=== PATIENT | female | born 1990 | race Two or more races ===

== ENCOUNTER 2024-07-23 14:31 | Emergency (ER) | payer OTHER, SELFPAY ==
[2024-07-23] VITALS (19 sets, daily range): BP systolic 102–144; BP diastolic 63–98; PULSE 58–118; RESP 8–85; TEMP 36.7–36.9; O2SAT 98–100; BMI 28.3
--- NOTE | ~2024-07-23 | XR_ITS ---
CLINICAL HISTORY: post conscious sedation 2 view right knee Comparison: None Findings: No fractures or dislocations. No significant loss of joint space, osteophytes, or erosions. No joint effusion. No radiopaque foreign body. IMPRESSION: No acute fracture, dislocation or significant joint effusion. This document has been electronically signed by: Mirta Mendoza DO on 07/23/2024 16:20:45
--- NOTE | ~2024-07-23 | XR_ITS ---
CLINICAL HISTORY: dislocation 2 view right ankle Comparison: CR - XR ANKLE RT MIN 3V - 07/23/24 15:16 EST Findings: Interval placement of an overlying stabilizing cast. Mcguire type C fracture in the distal fibula with residual posterior and lateral displacement, 4 mm maximum step-off. Fracture in the superior aspect of the medial malleolus with satisfactory alignment. Now near normal tibiotalar articulation. Soft tissue swelling and an ankle effusion. No radiopaque foreign body. IMPRESSION: 1. Minimal residual displacement of the fracture in the distal fibula. 2. Satisfactory alignment of the fracture in the medial malleolus. 3. Satisfactory alignment of the ankle mortise. This document has been electronically signed by: Mirta Mendoza DO on 07/23/2024 16:15:54
--- NOTE | ~2024-07-23 | XR_ITS ---
CLINICAL HISTORY: RT ankle pain 2 view right ankle Comparison: None Findings: Displaced fracture in the distal fibula above the level of the syndesmosis. Limited evaluation of the medial malleolus. A fracture with no significant displacement is suspected. Disruption of the ankle mortise. Posterior dislocation of the talus relative to the tibia with likely a rotational component. Intact subtalar joint. No radiopaque foreign body. IMPRESSION: Positive for fracture-dislocation. This document has been electronically signed by: Mirta Mendoza DO on 07/23/2024 16:11:30
--- NOTE | 2024-07-23 14:55 | PC.NURSE ---
Addendum entered by Kelly Issa 07/23/24 18:44: This note was entered by MANI Cisneros due to her login not working for extended amount of time. Original Note: Ativan 2mg IV override in Pyxis and administered to pt. at this time by Maria Cisneros RN per verbal order of ARI Gaitan - awaiting order in AUG at this time. RN having IT issues and unable to log into computer at this time
[2024-07-23] MEDS: Morphine Sulfate 4 MG/ML CARTRIDGE IVPUSH (14:56)
[2024-07-23] MEDS: ondansetron HCL 4 MG/2 ML VIAL IVPUSH (14:57)
[2024-07-23] MEDS: HYDROmorphone HCl 1 MG/ML SYRINGE IVPUSH (15:17)
[2024-07-23] MEDS: LORazepam 2 MG/ML VIAL IVPUSH ×2 (15:21→16:39)
[2024-07-23] MEDS: propofoL 200 MG/20 ML VIAL 100 MG IVPUSH (15:33)
--- OUTSIDE RECORDS SUMMARY | 2024-07-23 15:37 | XMS_ITS | Encounter Summary ---
Author Organization [facility] Address Unknown Care Team Providers Care Fashion Intern Name Role Phone Radha Sylvester MD Primary Care Provider Reason for Visit * Reason Comments Follow-up Encounter Details Date Type Department Care Team (Late st Contact Info) Description 10/20/2021 Telephone [facility] Department of Internal Medicine [address] [place] [address], [address] [place] [address] Morena Rendon MA [address] [place] [address] Follow-up Social History Tobacco Use Types Packs/Day Years Used Date Smoking Tobacco: Never Smokeless Tobacco: Never Alcohol Use Standard Drinks/Week Comments No 0 (1 standard drink = 0.6 oz pur e alcohol) rarely if ever Comments No Sex and Gender Information Value Date Recorded Sex Assigned at Female 08/03/2019 7:39 AM EST Legal Sex Female 2:03 PM EDT Gender Identity Female 08/03/2019 7:39 AM EST Sexual Orientation Straight 08/03/2019 7: 39 AM EST documented as of this encounter Miscellaneous Notes * Telephone Encounter - Morena Rendon MA - 10/20/2021 12:02 PM EDT Pt notified and will have them done before her upcoming appt * Telephone Encounter - Morena Rendon MA - 10/20/2021 12:01 PM EDT Radha Sylvester MD sent to [facility] Please order bmp and iron/tibc/ferritin and notify patient that she is due for nonfasting labs. Diagnosis: iron deficiency. documented in this encounter Plan of Treatment Scheduled Orders Name Type Priority Associated Diagnoses Orde r Schedule Basic metabolic panel Lab - Test Panel Order Routine Iron deficiency Ordered: 10/20/2021 Iron, TIBC and ferritin panel ([facility]) Lab Routine Iron deficiency Ordered: 10/20/2021 documented as of this encounter Visit Diagnoses Diagnosis Iron deficiency- Primary Iron deficiency anemia, unspecified documented in this encounter Additional Health Concerns Infection Onset Date Last Indicated Resolved Time COVID-19 12/01/2023 12/01/2023 12/11/2023 7:18 PM EDT documented as of this encounter Care Teams Fashion Intern Relationship Specialty Start Date End Date Radha Sylvester MD [address] [place] [phone] PCP - General 09/06/23 documented as of this encounter
--- OUTSIDE RECORDS SUMMARY | 2024-07-23 15:37 | XMS_ITS | Encounter Summary ---
Author Organization [facility] Address Unknown Care Team Providers Care Flight Information Expediter Name Role Phone Radha Sylvester MD Primary Care Provider Reason for Visit * Reason Onset Date Comments Medication Refill 03/02/2024 Encounter Details Date Type Department Care Team ([facility] st Contact Info) Description 03/02/2024 Refill [facility] Department of Pharmacy [address] [place] [address] [phone] Radha Sylvester MD [address] [place] [phone] Medication Refill Social History Tobacco Use Types Packs/Day Years Used Date Smoking Tobacco: Never Smokeless Tobacco: Never Alcohol Use Standard Drinks/Week Comments No 0 (1 standard drink = 0.6 oz pur e alcohol) rarely if ever PHQ-2 Answer Date Recorded PHQ-2 Total Score 6 08/30/2023 Comments No Sex and Gender Information Value Date Recorded Sex Assigned at Female 08/03/2019 7:39 AM EST Legal Sex Female 2:03 PM EDT Gender Identity Female 08/03/2019 7:39 AM EST Sexual Orientation Straight 08/03/2019 7: 39 AM EST Occupation Industry Job Start Date Job End Date 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
--- OUTSIDE RECORDS SUMMARY | 2024-07-23 15:37 | XMS_ITS | Encounter Summary ---
Author Organization [facility] Address Unknown Care Team Providers Care Pulmonary Physical Therapist Name Role Phone Radha Sylvester MD Primary Care Provider Reason for Visit * Reason Onset Date Comments Medication Refill 11/08/2023 Encounter Details Date Type Department Care Team ([facility] st Contact Info) Description 11/08/2023 Refill [facility] Department of Internal Medicine [address] [place] [phone] Radha Sylvester MD [address] [place] [phone] Medication Refill Social History Tobacco Use Types Packs/Day Years Used Date Smoking Tobacco: Never Smokeless Tobacco: Never Alcohol Use Standard Drinks/Week Comments No 0 (1 standard drink = 0.6 oz pur e alcohol) rarely if ever PHQ-2 Answer Date Recorded PHQ-2 Total Score 6 08/30/2023 Comments Yes Sex and Gender Information Value Date Recorded Sex Assigned at Female 08/03/2019 7:39 AM EST Legal Sex Female 2:03 PM EDT Gender Identity Female 08/03/2019 7:39 AM EST Sexual Orientation Straight 08/03/2019 7: 39 AM EST Occupation Industry Job 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 Date Job End Date 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 on file Not on file documented as of this encounter Plan of Treatment Not on file documented as of this encounter Visit Diagnoses Not on filedocumented in this encounter Additional Health Concerns Infection Onset Date Last Indicated Resolved Time COVID-19 12/01/2023 12/01/2023 12/11/2023 7:18 PM EDT Assessment Noted Time PHQ-9 Depression Total Score: 19 024 5:01 PM EDT documented as of this encounter Care Teams Pulmonary Physical Therapist Relationship Specialty Start Date End Date Radha Sylvester MD [address] [place] [phone] PCP - General 09/06/23 documented as of this encounter
--- OUTSIDE RECORDS SUMMARY | 2024-07-23 15:37 | XMS_ITS | Encounter Summary ---
Author Organization [facility] Address Unknown Care Team Providers Care Lens Molder Name Role Phone Radha Sylvester MD Primary Care Provider Reason for Visit * Reason Onset Date Comments Medication Refill 11/25/2023 Encounter Details Date Type Department Care Team ([facility] st Contact Info) Description 11/25/2023 Refill [facility] Department of Pharmacy [address] [place] [address] [phone] Radha Sylvester MD [address] [place] [phone] Medication Refill Social History Tobacco Use [...] Industry Job Start Date Job End Date 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
--- OUTSIDE RECORDS SUMMARY | 2024-07-23 15:37 | XMS_ITS | Encounter Summary ---
Author Organization [facility] Address [address] [place] [address] Care Team Providers Care Senior Electrical Controls Engineer Name Role Phone Radha Sylvester MD Primary Care Provider Encounter Details Date Type Department Care Team ([facility] Contact Info) Description 11/11/2020 Transcribed Orders [facility] [address] [place] [phone] Radha Sylvester MD [address] [place] [phone] Social History Tobacco Use Types Packs/Day Years [...] AM EST documented as of this encounter Plan of Treatment Not on file documented as of this encounter Visit Diagnoses Not on filedocumented in this encounter Additional Health Concerns Infection Onset Date Last Indicated Resolved Time COVID-19 12/01/2023 12/01/2023 12/11/2023 7:18 PM EDT documented as of this encounter Care Teams Senior Electrical Controls Engineer Relationship Specialty Start Date End Date Radha Sylvester MD [address] [place] [phone] PCP - General 09/06/23 documented as of this encounter
--- OUTSIDE RECORDS SUMMARY | 2024-07-23 15:37 | XMS_ITS | Encounter Summary ---
Author Organization [facility] Address Unknown Care Team Providers Care Fisher Dip Net Name Role Phone Radha Sylvester MD Primary Care Provider Reason for Visit * Reason Comments Appointment Request MRI Encounter Details Date Type Department Care Team ([facility] Contact Info) Description 05/03/2023 Telephone [facility] DI [address] [place], [place] [phone] Radha Sylvester MD [address] [place] [phone] Appointment Request (MRI) Social History Tobacco Use Types Packs/Day Years Used Date Smoking Tobacco: Never Smokeless Tobacco: Never Alcohol Use Standard Drinks/Week Comments No 0 (1 standard drink = 0.6 oz pur e alcohol) rarely if ever Comments Unknown Sex and Gender Information Value Date Recorded Sex Assigned at Female 08/03/2019 7:39 AM EST Legal Sex Female 2:03 PM EDT Gender Identity Female 08/03/2019 7:39 AM EST Sexual Orientation Straight 08/03/2019 7: 39 AM EST documented as of this encounter Miscellaneous Notes * Telephone Encounter - Mirta Sanchez - 05/04/2023 2:03 PM EST Patient calling today to schedule. She states she has to schedule this appt within a certain time frame so she can have follow up appt with ortho. She states she keeps getting calls from ortho to follow up and see when appt scheduled. Requesting a call back to schedule. * Telephone Encounter - Christa Kerr - 05/03/2023 2:54 PM EST Pt is calling again about scheduling an appt. Contact # [phone] * Telephone Encounter - Silvia Herrera - 05/03/2023 10:02 AM EST Pt calling to schedule MRI foot- pt received referral on 04/30 Best contact # [phone] documented in this encounter Plan of Treatment Not on file documented as of this encounter Visit Diagnoses Not on filedocumented in this encounter Additional Health Concerns Infection Onset Date Last Indicated Resolved Time COVID-19 12/01/2023 12/01/2023 12/11/2023 7:18 PM EDT documented as of this encounter Care Teams Fisher Dip Net Relationship Specialty Start Date End Date Radha Sylvester MD [address] [place] [phone] PCP - General 09/06/23 documented as of this encounter
--- OUTSIDE RECORDS SUMMARY | 2024-07-23 15:37 | XMS_ITS | Encounter Summary ---
Author Organization [facility] Address Unknown Care Team Providers Care Rock Contractor Name Role Phone Radha Sylvester MD Primary Care Provider Reason for Visit * Reason Onset Date Comments FYI 08/31/2023 Encounter Details Date Type Department Care Team ([facility] st Contact Info) Description 08/31/2023 Telephone [facility] Department of Internal Medicine [address] [place] [address] [phone] Yarely Garcia, [employer] [address] [place] [phone] FYI Social History Tobacco Use Types Packs/Day Years [...] encounter Miscellaneous Notes * Telephone Encounter - DanielMirta - 08/31/2023 1:45 PM EDT Yarely Garcia Patient states she is calling to schedule 3 week follow up. Appt scheduled with pcp for 3 week follow on 4/8 @ 11am in person. While re confirming with pt on the phone, pt's phone went silent. Asked to call back to re confirm. documented in this encounter Plan of Treatment Not on file documented as of this encounter Visit Diagnoses Not on filedocumented in this encounter Additional Health Concerns Infection Onset Date Last Indicated Resolved Time COVID-19 12/01/2023 12/01/2023 12/11/2023 7:18 PM EDT Assessment Noted Time PHQ-9 Depression Total Score: 19 024 5:01 PM EDT documented as of this encounter Care Teams Rock Contractor Relationship Specialty Start Date End Date Radha Sylevster MD [address] [place] [phone] PCP - General 09/06/23 documented as of this encounter
--- OUTSIDE RECORDS SUMMARY | 2024-07-23 15:37 | XMS_ITS | Encounter Summary ---
Author Organization [facility] Address Unknown Care Team Providers Care Avian Keeper Name Role Phone Radha Sylvester MD Primary Care Provider Reason for Visit * Reason Onset Date Comments Medication Refill 11/24/2023 Encounter Details Date Type Department Care Team ([facility] st Contact Info) Description 11/24/2023 Refill [facility] Department of Internal Medicine [address] [place] [phone] Radha Sylvester MD [address] [place] [phone] Medication Refill Social History Tobacco Use [...] Industry Job Start Date Job End Date 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
--- OUTSIDE RECORDS SUMMARY | 2024-07-23 15:37 | XMS_ITS | Encounter Summary ---
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 on file Not on file documented as of this encounter Miscellaneous Notes * Telephone Encounter - Sergio Bejarano - 03/07/2024 1:53 PM EDT Pt called in requesting call back to schedule mri please contact [phone] documented in this encounter Plan of Treatment Not on file documented as of this encounter Visit Diagnoses Not on filedocumented in this encounter Additional Health Concerns Assessment Noted Time PHQ-9 Depression Total Score: 19 024 5:01 PM EDT documented as of this encounter Care Teams Search Developer Relationship Specialty Start Date End Date Radha Sylvester MD [address] [place] [phone] PCP - General 09/06/23 documented as of this encounter
--- OUTSIDE RECORDS SUMMARY | 2024-07-23 15:37 | XMS_ITS | Encounter Summary ---
Author Organization [facility] Address [address] [place] [phone] Care Team Providers Care Lens Edger Name Role Phone Radha Sylvester MD Primary Care Provider Encounter Details Date Type Department Care Team ([facility] st Contact Info) Description 11/23/2018 Scanned Document [facility] [address] [place] [address] Provider, Historical . Social History Tobacco Use Types Packs/Day Years [...] on file documented as of this encounter Procedures Procedure Name Priority Date/Time Associated Diagnosis Comments GENETICS SCAN Routine 11/23/2018 documented in this encounter Results * Genetics Scan (11/23/2018) us Historical Provider GENETIC TESTING Final Result documented in this encounter Visit Diagnoses Not on filedocumented in this encounter Additional Health Concerns Infection Onset Date Last Indicated Resolved Time COVID-19 12/01/2023 12/01/2023 12/11/2023 7:18 PM EDT documented as of this encounter Care Teams Lens Edger Relationship Specialty Start Date End Date Radha Sylvester MD [address] [place] [phone] PCP - General 09/06/23 documented as of this encounter
--- OUTSIDE RECORDS SUMMARY | 2024-07-23 15:37 | XMS_ITS | Encounter Summary ---
Author Organization [facility] Address Unknown Care Team Providers Care Care Program Director Name Role Phone Radha Sylvester MD Primary Care Provider Reason for Visit * Reason Comments Appointment Request US Encounter Details Date Type Department Care Team ([facility] Contact Info) Description 04/11/2021 Telephone [facility] DI [address] [place] [address] Radha Sylvester MD [address] [place] [phone] Appointment Request (US) Social History Tobacco Use Types Packs/Day Years [...] encounter Miscellaneous Notes * Telephone Encounter - Paty Metz - 04/14/2021 9:03 AM EDT APPT SCHED * Telephone Encounter - Xochilt Marx - 04/11/2021 3:44 PM EDT Pt returning missed call. * Telephone Encounter - Paty Metz - 04/11/2021 2:14 PM EDT LMOM * Telephone Encounter - Kelly Sims - 04/11/2021 12:24 PM EDT Radha Sylvester # [phone] Pt calling to schedule US. documented in this encounter Plan of Treatment Not on file documented as of this encounter Visit Diagnoses Not on filedocumented in this encounter Additional Health Concerns Infection Onset Date Last Indicated Resolved Time COVID-19 12/01/2023 12/01/2023 12/11/2023 7:18 PM EDT documented as of this encounter Care Teams Care Program Director Relationship Specialty Start Date End Date Radha Sylvester MD [address] [place] [phone] PCP - General 09/06/23 documented as of this encounter
--- OUTSIDE RECORDS SUMMARY | 2024-07-23 15:37 | XMS_ITS | Encounter Summary ---
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
--- OUTSIDE RECORDS SUMMARY | 2024-07-23 15:37 | XMS_ITS | Encounter Summary ---
Author Organization [facility] Address Unknown Care Team Providers Care Joy Loading Machine Operator Name Role Phone Radha Sylvester MD Primary Care Provider Encounter Details Date Type Department Care Team ([facility] Contact Info) Description 03/05/2017 Abstract Y Department of Obstetrics and Gynecology [address] [place] [phone] External, Provider Social History Tobacco Use Types Packs/Day Years Used Date Smoking Tobacco: Never Alcohol Use Standard Drinks/Week Comments Yes 0 (1 standard drink = 0.6 oz [...] documented as of this encounter Care Teams Joy Loading Machine Operator Relationship Specialty Start Date End Date Radha Sylvester MD [address] [place] [phone] PCP - General 09/06/23 documented as of this encounter
--- OUTSIDE RECORDS SUMMARY | 2024-07-23 15:37 | XMS_ITS | Clinical Summary ---
Author Organization [address] Address [address] [place] [phone] Care Team Providers Care Sharepoint Analyst Name Role Phone Radha Sylvester MD Primary Care Provider Allergies Active Allergy Reactions Criticality Noted Date Comments Gluten 12/29/2018 Celiac disease Medications dapsone (ACZONE) 5 % topical gelIndications: Acne vulgaris Apply topically 2 (two) times daily. Apply to affected area 60 g 6 2 Active valACYclovir (VALTREX) 1000 mg tabletIndicatio ns:HSV infection Take 2 tabs at earliest symptoms of cold sore such as tingling or burning and then take 2 tabs 12 hours later. 20 tablet 2 3 Active tretinoin (RETIN-A) 0.05 % creamIndication s:Acne vulgaris,Melasm a Apply topically nightly. Apply thin layer at night, 2-7 nights weekly, as tolerated 45 g 6 3 Active diphenhydrAMINE (BENADRYL) 25 mg capsule Take 1 capsule (25 mg total) by mouth every 6 (six) hours as needed for itching. Active clobetasoL (TEMOVATE) 0.05 % cream Apply topically 2 (two) times daily. 60 g 2 4 Active buPROPion SR (WELLBUTRIN SR) 100 mg 12 hr tablet Take 1 tablet (100 mg total) by mouth 2 (two) times daily. 180 tablet 1 4 Active escitalopram oxalate (LEXAPRO) 10 mg tablet Take 1.5 tablets (15 mg total) by mouth every morning. 135 tablet 1 4 11/22/19 25 Active Active Problems Problem Noted Date Diagnosed Date Anxiety with depression 11/08/2023 BMI 28.0-28.9,adult 03/13/2023 Rosacea 08/09/2019 Celiac disease 01/04/2019 Iron deficiency 01/04/2019 Overview (12/09/2021): As of 11/2021 -- slowing improving ferritin, not taking iron supplement. Advised MVI with iron. Family history of cancer 12/06/2018 Overview (12/06/2018): 11/2018 pt's genetic testing was negative Syncope, vasovagal 06/21/2007 Resolved Problems Problem Noted Date Diagnosed Date Resolved Date COVID-19 virus infection 03/13/202304/2024 Rh negative state in antepartum period 01/15/2022 11/24/2023 ETD (Eustachian tube dysfunction), right 08/18/2019 10/30/2021 Migraine 08/09/2019 08/30/2020 Malaise 01/04/2019 05/31/2019 Dysautonomia orthostatic hypotension syndrome 01/23/20 16 09/27/2023 Overview (03/06/2016): Followed by senior java [email or web address] developer in [facility] before moving to [place] in summer 2015. Dx age 18. Symptoms controlled by avoiding standing for long periods of time, eating well, avoiding alcohol, regular sleep. Pt seen by [facility] cardiology in 01/2016. Holter results (01/2016): SR, 1 PAC, no symptoms noted. Encounters Date Type Department Care Team Description 05/23/2024 Telephone [facility] Department of Internal Medicine [address] [place] [address] Radha Sylvester MD Medication Inquiry from Last 3 Months Immunizations Name Administration Dates Next Due COVID-19 Vaccine - PFIZER 05/26/2022,10/26/2020, 10/05/2020 COVID-19, Pfizer, 12yr + up, 30 mcg/0.3 mL 05/06/2023 Influenza, injectable, quadr ivalent, preservative free 04/02/2023,04/07/2022,04/25/2021,2018,04/01/2018,04/01/2017 Rho(D)-IG 01/15/2022 Tdap 04/01/2018 Family History Medical History Relation Name Comments Arrhythmia Father pt not sure of type of arrhythmia Heart disease Father no [place] Obesity Father Stroke Father related to adair harrison, per pt. Hypothyroidism Mother Breast cancer Other Great maternal aunt pre-men opausal Cancer Paternal Aunt 1 cervical ca Stroke Paternal Aunt 2 Cancer Paternal Grandmother uterus (pt not sure of age of diagnosis) Uterine cancer Paternal Grandmother Ovarian cancer Neg Hx Relation Name Status Comments Father Alive Mother Alive Other Great maternal aunt Paternal Aunt 1 Paternal Aunt 2 Paternal Grandmother Social History Tobacco Use Types Packs/Day Years Used Date Smoking Tobacco: Never Smokeless Tobacco: Never Tobacco Cessation:Counseling Given: Not Answered Alcohol Use Standard Drinks/Week Comments No 0 [...] Industry Job Start Date Job End Date 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 [employer] Not on file Not on file Not on file Last Filed Vital Signs Vital Sign Reading Time Taken Comments Blood Pressure 112/75 03/07/2024 9:59 AM EDT Pulse 71 03/07/2024 9:59 AM EDT Temperature 36.9 ??C (98.4 ??F) 01/15/2022 1:54 PM ED T Respiratory Rate 16 03/07/2024 9:59 AM EDT Oxygen Saturation 99% 03/07/2024 9:59 AM EDT Inhaled Oxygen Concentration - - Weight 66.2 kg (146 lb) 03/07/2024 9:59 AM EDT Height 160 cm (5' 3 ) 03/07/2024 9:59 AM EDT Body Mass Index 25.86 03/07/2024 9:59 AM EDT Plan of Treatment Health Maintenance Due Date Last Done Comments Influenza vaccine 01/20/2024 04/02/2023, , 04/25/2021, Additional history exists Covid-19 vaccine series ( season) 2024 05/06/2023, 05/26/2022, 06/06/2021, Additional history exists Tetanus adult (Td q 10,TDAP once) 04/01/2028 04/01/2018 Cervical cancer screening 08/24/20282023, 08/30/2020, 10/06/2017, Additional history exists RSV Discussion (1 - 1-dose 75+ series) 2066 HIV screening Completed 06/05/2019 Hepatitis C screening Completed 11/11/2020 Meningococcal Vaccine Aged Out No lex yarelis eligible based on patient's age to complete this topic Pneumococcal Vaccine Aged Out No long er eligible based on patient's age to complete this topic Procedures Procedure Name Priority Date/Time Associated Diagnosis Comments CYTOLOGY COORDINATOR OF ONLINE PROGRAMS CASES (YH) Routine 08/25/2023 5:22 PM EST HEPATITIS C AB WITH REFLEX TO HCV PCR Routine 11/11/2020 1:34 PM EDT HIV 1/2 AG/AB, W/REFLEXES (Q) Routine 06/05/2019 10:34 AM EST Screening for venereal disease from Last 3 Months or Most Recently Relevant to Health Maintenance Results * Cytology clamp jig assembler cases (YH) (08/25/2023 5:22 PM EST) Cytology Beating Machine Operator Cases ?CYTOLOGY REPORT ? Procedures/Addenda Attached Patient: BONNIE BASS ?MR #: [id number] ?Submitted by: JOY HAYES FINAL DIAGNOSIS SUREPATH PAP SMEAR: ? Primary Diagnosis: ? NEGATIVE FOR INTRAEPITHELIAL LESION OR MALIGNANCY. ? Additional Findings: ENDOCERVICAL/TRANS FORMATION ZONE COMPONENT PRESENT. ? ACUTE INFLAMMATION. Specimen Adequacy: THIS SPECIMEN IS SATISFACTORY FOR EVALUATION. NOTE: ??Cervical/vaginal cytology is a screening tool for cervical carcinoma and its precursor lesions with an inherent false negative rate. ??It is an inaccurate test for detection of endometrial lesions and should not be used to evaluate suspected endometrial abnormalities. ??(The [employer] System, 2001) ?? 08/26/2023 15:45 ?* Report Electronically Signed Out * ? This electronic signature indicates that the pathologist has personally reviewed the available gross and/or microscopic material and has based the diagnosis on that evaluation. ? Specimen(s) Received: SUREPATH PAP SMEAR Clinical History and Impression: {Not Available} Date of LMP: 08/01/23 ?? Procedures/Addenda MOLECULAR DX: HR HPV SCREENING ?Pathologist: ? [facility] ? Status: ??Signed Out ? Ordered: ? 08/25/2023 ?Reported: ? 08/26/2023 15:20 ? Interpretation Specimen: SUREPATH PAP SMEAR BELOW CUTOFF FOR HIGH RISK HPV HPV types 16, 18, 31, 33, 35, 39, 45, 51, 52, 56, 58, 59, 66, and 68 DNA were either considered NEGATIVE, undetectable, or below the pre-set threshold. This test was performed at [facility] Department of Pathology, [address] [place] [id number], CLIA# [id number] using the Roel sanchez 6800 HPV Test System and is only approved by the Food and Drug Administration (FDA) for use on cervical specimens collected in Cytyc Preservcyt Solution (ThinPrep). ??When using ThinPrep liquid based samples for non-cervical specimens, SurePath liquid based samples, or formalin fixed paraffin embedded tissue, the performance characteristics have been determined by [facility]. ??Although testing on samples that are not cervical in origin, and/or in any other medium besides ThinPrep, has not been cleared or approved by the FDA, the FDA has determined that such clearance or approval is not necessary. ? [facility] Cervical Tracking Result Non-Tracking [facility] High Risk HPV Screening Non-Tracking [facility] 08/25/2023 5:22 PM EST Comment:SUREPATH PAP SMEAR+ HPV Joy Malone FRONT END ALIGNMENT SPECIALIST PATHOLOGY/CYTOLOGY OR DERABLES Final Result Performing Organization Address City/State/[facility] Co de Phone Number [facility] Department of Pathology [address] [place] [phone] * Hepatitis C Ab with reflex to HCV PCR (11/11/2020 1:34 PM EDT) Hepatitis C Ab NON-REACT DERRICK NON-REACT DERRICK [facility] Signal To Cut-Off 0.02 <1.00 [facility] Comment: HCV antibody was non-reactive. There is no laboratory evidence of HCV infection. In most cases, no further action is required. However, if recent HCV exposure is suspected, a test for HCV RNA (test code 75311) is suggested. For additional information please refer to http://education.Discera/faq/WNC77l1 (This link is being provided for informational/ educational purposes only.) 11/11/2020 1:34 PM EDT 11/11/2020 1:34 PM EDT Narrative [facility] - 11/12/2020 6:37 PM EDT FASTING:NO FASTING: NO Resulting Agency Comment Performing Lab: ?Site ID: [id number] ?Name: [facility] ?Address: [address] [place] [address], [place] [address] ?Director: Jean Carlos Turcios M.D. Radha Sylvester MD LAB BLOOD ORDERABLES Fi nal Result Performing Organization Address [facility] Co de Phone Number [facility] [address] [place] [address] * HIV 1/2 ag/ab, w/reflexes (Q) (06/05/2019 10:34 AM EST) [facility] HIV Ag/Ab, 4th Generation NON-REACT DERRICK NON-REACT DERRICK [facility] Comment: HIV-1 antigen and HIV-1/HIV-2 antibodies were not detected. There is no laboratory evidence of HIV infection. PLEASE NOTE: This information has been disclosed to you from records whose confidentiality may be protected by state law. ??If your state requires such protection, then the state law prohibits you from making any further disclosure of the information without the specific written consent of the person to whom it pertains, or as otherwise permitted by law. A general authorization for the release of medical or other information is NOT sufficient for this purpose. ?? For additional information please refer to http://education.Discera/faq/WGA382 (This link is being provided for informational/ educational purposes only.) The performance of this assay has not been clinically validated in patients less than 2 years old. Blood 06/05/2019 10:3 4 AM EST 06/05/2019 10:35 AM EST Joy Malone APRN LAB BLOOD ORDERABLES Final Result Performing Organization Address [facility] Co de Phone Number [facility] [address] [place] [address] from Last 3 Months or Most Recently Relevant to Health Maintenance Insurance on file HEALTH on file HEALTH on file HEALTH on file [facility] on file [facility] on file Care Teams Sharepoint Analyst Relationship Specialty Start Date End Date Radha Sylvester MD [address] [place] [phone] PCP - General 09/06/23
--- OUTSIDE RECORDS SUMMARY | 2024-07-23 15:37 | XMS_ITS | Data Portability ---
Author Organization [place] - [facility], [facility] Address [address] [place] [address] Assessment Encounter Date Assessment Date Assessment LastModified by Organization Details LastModified Time 02/22/2015 02/22/2015 OCP= aware of risks/benefit s- Hx of syncope, got Gardasil - loloestrin # 3 months and f/u [email or web address] Not available 02/22/2015 12:06:19 05/07/2015 05/07/2015 happy with OCP, only silent periods, but pt wanted to keep going. Headaches at beginning now almost gone- may try nuvaring- 15 minutes visit [email or web address] Not available 05/07/2015 11:13:20 08/16/2015 08/16/2015 Normal Physician Underwriter Exam, discussed healthy diet, excercise and breast self exam. c/o discharge= affirm done, will continue OCP [email or web address] Not available 08/16/2015 10:51:29 Plan of Treatment Reminders Order Date Submit Date Provider Last Modified By Organization Details Last Modified Time Details Appointments None recorded. Lab test, urine 2014 015 [email or web address] In-Office Order, Internal Use Only DO Not Attach Compendium DO Not Attach Compendium, Do Not Delete/merge, [id number] 5 11:13:42 unlisted lab - chem scn pnl w/CBC, lipids, TSH, CRP, vit D 25-oh 2015 016 [facility] [address] [place], [id number] 6 10:55:24 glucose, QN [mass/volu me], serum or plasma 2015 016 [facility], [address] [place], [address] 6 17:39:06 urinalysis , dipstick 2015 016 [email or web address] In-Office Order, Internal Use Only DO Not Attach Compendium DO Not Attach Compendium, Do Not Delete/merge, [id number] 6 10:55:16 bacterial vaginosis + vaginitis panel, vaginal 2015 016 [facility], [address] [place], [address] 6 14:48:29 pap, LB + HPV 2015 016 [facility], [address] [place], [address] 6 10:55:04 Referral None recorded. Procedures None recorded. Surgeries None recorded. Imaging None recorded. Medication Orders None recorded. Patient TargetsNo targets recorded. Patient Instructions Encounter Date Encounter Id Patient Instructions Last Modified By Organization Details Last Modified Time 02/22/2015 [id number] OCP= aware of risks/benefits- Hx of syncope, got Gardasil - loloestrin # 3 months and f/u [email or web address] Not available 02/22/2015 12:06:19 OCP= aware of risks/benefits- Hx of syncope, got Gardasil - loloestrin # 3 months and f/u [email or web address] Not available 02/22/2015 12:06:19 05/07/2015 [id number] happy with OCP, only silent periods, but pt wanted to keep going. Headaches at beginning now almost gone- may try nuvaring- 15 minutes visit [email or web address] Not available 05/07/2015 11:13:21 happy with OCP, only silent periods, but pt wanted to keep going. Headaches at beginning now almost gone- may try nuvaring- 15 minutes visit [email or web address] Not available 05/07/2015 11:13:21 08/16/2015 [id number] vaginitis: care instructions [email or web address] Not available 08/19/2015 11:50:25 Reason for Referral None Reported. Results Created Date Observation Date Name Description Value Unit Range Abnormal Flag Note LastModifiedBy Organization Detail LastModifiedTime 08/16/19 16 08/16/2015 urina lysis , dipst ick Leukocytes Negati ve Not Available In-Office Order Internal Use Only DO Not Attach Compendium DO Not Attach Compendium, Do Not Delete/merge, [id number] 08/16/2015 10:23:48 08/16/19 16 08/16/2015 urina lysis , dipst ick Nitrite negati ve Not Available In-Office Order Internal Use Only DO Not Attach Compendium DO Not Attach Compendium, Do Not Delete/merge, [id number] 08/16/2015 10:23:48 08/16/19 16 08/16/2015 urina lysis , dipst ick Protein Negati ve Not Available In-Office Order Internal Use Only DO Not Attach Compendium DO Not Attach Compendium, Do Not Delete/merge, [id number] 08/16/2015 10:23:48 08/16/19 16 08/16/2015 urina lysis , dipst ick Glucose Negati ve Not Available In-Office Order Internal Use Only DO Not Attach Compendium DO Not Attach Compendium, Do Not Delete/merge, [id number] 08/16/2015 10:23:48 05/07/20 15 05/07/2015 pregn alber test, urine Result negati ve Not Available In-Office Order Internal Use Only DO Not Attach Compendium DO Not Attach Compendium, Do Not Delete/merge, [id number] 05/07/2015 10:38:51 08/16/19 16 08/21/2015 pap, LB + HPV report abnormal GYNEC OLOGI LEONIDES CYTOL OGY REPOR T THINP REP PAP TEST WITH HPV REFLE X AND GC/CH LAMYD IA SPECI MEN ADEQU ACY: SATIS FACTO RY FOR EVALU ATION ; ENDOC ERVIC AL/TR ANSFO RMATI ON ZONE COMPO NENT PRESE NT. INTER PRETA TION: NEGAT DERRICK FOR INTRA EPITH ELIAL KALIN Anthony OR YANIRA GONZÁLES . FUNGA L ORGAN ISMS MORPH OLOGI JAYA CONSI STENT WITH DAMON DA SPECI ES. 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 The Pap test is a scree geovanny test with an inher ent false negat derrick rate. Key lance noted , this case was scree mariaa at [facility] Part[facility] ers, [facility], [facility] ord, [address] [facility], [place] [address] CT Reg # [id number]. [phone] Not Available [facility] [address] [place] [address], [id number] 08/21/2015 10:55:04 08/16/19 16 08/17/2015 CT + NG DNA, PCR, unspe cifie d speci men source CERVIX /ENDOC ERVIX Not Available [facility] [address] [place] [address], [id number] 08/21/2015 10:55:05 08/16/19 16 08/17/2015 CT + NG DNA, PCR, unspe cifie d speci men chlamydia by DNA Negati ve negati ve Not Available [address], [id number] 08/21/2015 10:55:05 08/16/19 16 08/17/2015 CT + NG DNA, PCR, unspe cifie d speci men GC by DNA Negati ve negati ve Not FDA appro al for GC/Ch lamyd ia in SureP ath, recta l and throa t speci mens. Test valid ated by [facility] for detec ting GC/Ch lamyd ia from these [facility] es. Not Available [facility] [address] [place] [address], [id number] 08/21/2015 10:55:05 08/17/19 16 08/17/2015 gluco se, QN [mass /volu me], serum or plasm a glucose Duplic ate Test System Audit mg/dL Not Available [facility] [address] [place] [address], [id number] 08/17/2015 17:39:06 08/17/19 16 08/17/2015 gluco se, QN [mass /volu me], serum or plasm a glucose 99 mg/dL 65-99 Fasti ng: <100 mg/dL , Non-F astin g: <200 mg/dL (ADA 2004) Not Available [facility] [address] [place] [address], [id number] 08/17/2015 17:39:06 08/17/19 16 08/17/2015 CBC w/ auto diff white blood count 4.0 thou/ uL 4.0-11 .0 Not Available [facility] [address] [place] [address], [id number] 08/17/2015 17:39:07 08/17/19 16 08/17/2015 CBC w/ auto diff red blood count 4.67 mil/u L 4.00-5 .40 Not Available [facility] [address] [place] [address], [id number] 08/17/2015 17:39:07 08/17/19 16 08/17/2015 CBC w/ auto diff hemoglobin 14.2 g/dL 11.7-1 5.7 Not Available [facility] [address] [place] [address], [address] 08/17/2015 17:39:07 08/17/19 16 08/17/2015 CBC w/ auto diff hematocrit 43.0 % 35.0-4 7.0 Not Available [facility] [address] [place] [address], [id number] 08/17/2015 17:39:07 08/17/19 16 08/17/2015 CBC w/ auto diff MCV 92 fL 80-100 Not Available [facility] [address] [place] [address], [id number] 08/17/2015 17:39:07 08/17/19 16 08/17/2015 CBC w/ auto diff MCH 30.4 pg 26.0-3 4.0 Not Available [facility] [address] [place] [address], 08/17/2015 17:39:07 08/17/19 16 08/17/2015 CBC w/ auto diff MCHC 33.0 g/dL 30.0-3 6.0 Not Available [facility] [address], [place], 08/17/2015 17:39:07 08/17/19 16 08/17/2015 CBC w/ auto diff RDW 12.5 % 11.5-1 4.5 Not Available [facility] [address] [place] [address], [id number] 08/17/2015 17:39:07 08/17/19 16 08/17/2015 CBC w/ auto diff platelet count 232 thou/ uL 150-45 0 Not Available [facility] [address] [place] [address], [id number] 08/17/2015 17:39:07 08/17/19 16 08/17/2015 CBC w/ auto diff MPV 12.1 fL 9.4-12 .5 Not Available [facility] [address] [place] [address], [address] 08/17/2015 17:39:07 08/17/19 16 08/17/2015 CBC w/ auto diff neutrophil 49.6 % Not Available [facility] [address] [place] [address], [id number] 08/17/2015 17:39:07 08/17/19 16 08/17/2015 CBC w/ auto diff immature granulocyte 0.3 % Not Available [facility] [address] [place] [address], [address] 08/17/2015 17:39:07 08/17/19 16 08/17/2015 CBC w/ auto diff lymphocyte 41.3 % Not Available [facility] [address] [place] [address], [address] 08/17/2015 17:39:07 08/17/19 16 08/17/2015 CBC w/ auto diff monocyte 7.3 % Not Available [facility] [address] [place] [address], [address] 08/17/2015 17:39:07 08/17/19 16 08/17/2015 CBC w/ auto diff eosinophil 1.0 % Not Available [facility] [address] [place] [address], [id number] 08/17/2015 17:39:07 08/17/19 16 08/17/2015 CBC w/ auto diff basophil 0.5 % Not Available [facility] [address] [place] [address], 14[address] 08/17/2015 17:39:07 08/17/19 16 08/17/2015 CBC w/ auto diff neutrophil, absolute 1.97 thou/ uL 2.00-7 .50 low Not Available [facility] [address], [place], [facility] 08/17/2015 17:39:07 08/17/19 16 08/17/2015 CBC w/ auto diff immature granulocyte, absolute 0.01 thou/ uL 0.00-0 .10 Not Available [facility] [address] [place] [address], [facility] 08/17/2015 17:39:07 08/17/19 16 08/17/2015 CBC w/ auto diff lymphocyte, absolute 1.64 thou/ uL 1.50-4 .50 Not Available [facility] [address], [facility] 08/17/2015 17:39:07 08/17/19 16 08/17/2015 CBC w/ auto diff monocyte, absolute 0.29 thou/ uL 0.20-1 .50 Not Available [facility] [address] [place] [address], [facility] 08/17/2015 17:39:07 08/17/19 16 08/17/2015 CBC w/ auto diff eosinophil, absolute 0.04 thou/ uL 0.00-0 .70 Not Available [facility] [address], [facility] 08/17/2015 17:39:07 08/17/19 16 08/17/2015 CBC w/ auto diff basophil, absolute 0.02 thou/ uL 0.00-0 .20 Not Available [facility] [address], [facility] 08/17/2015 17:39:07 08/17/19 16 08/17/2015 bun (bloo d urea nitro gen), serum or plasm a blood urea nitrogen (BUN) 13 mg/dL 8-21 Not Available [facility] [address], [place], [facility] 08/17/2015 17:39:07 08/17/19 16 08/17/2015 creat inine w/ estim ated GFR (eGFR ), serum or plasm a creatinine 0.8 mg/dL 0.4-1. 1 Not Available [facility] [address], [facility] 08/17/2015 17:39:07 08/17/19 16 08/17/2015 creat inine w/ estim ated GFR (eGFR ), serum or plasm a eGFR 88 >59 MDRD in mL/mi n/1.7 3 sq meter s. For Afric an Ameri cans, multi ply by 1.21. Not Available [facility] [address] [place] [address], [facility] 08/17/2015 17:39:07 08/17/19 16 08/17/2015 BUN / creat inine ratio BUN / creatinine ratio 16 ratio 10.0-2 5.0 Not Available [facility] [address] [place] [address], [facility] 08/17/2015 17:39:08 08/17/19 16 08/17/2015 sodiu m, serum or plasm a sodium 142 mmol/ L 136-14 5 Not Available [facility] [address] [place] [address], [facility] 08/17/2015 17:39:08 08/17/19 16 08/17/2015 potas sium, serum potassium 4.9 mmol/ L 3.4-5. 3 Not Available [facility] [address] [place] [address], [facility] 08/17/2015 17:39:09 08/17/19 16 08/17/2015 chlor christiana, serum or plasm a chloride 105 mmol/ L 98-107 Not Available [facility] [address] [place] [address], [facility] 08/17/2015 17:39:09 08/17/19 16 08/17/2015 co2, (carb on dioxi de), total , serum or plasm a carbon dioxide 25 mmol/ L 22-33 Not Available [facility] [address] [place] [address], [facility] 08/17/2015 17:39:09 08/17/19 16 08/17/2015 bilir ubin, direc t, serum or plasm a bilirubin, direct <0.1 mg/dL 0.0-0. 2 Not Available [facility] [address] [place] [address], [facility] 08/17/2015 17:39:09 08/17/19 16 08/17/2015 bilir ubin, total , serum or plasm a bilirubin, total 0.4 mg/dL 0.2-1. 0 Not Available [facility] [address] [place] [address], [facility] 08/17/2015 17:39:10 08/17/19 16 08/17/2015 calci um, serum or plasm a calcium 9.1 mg/dL 8.7-10 .5 Not Available [address], [facility] 08/17/2015 17:39:10 08/17/19 16 08/17/2015 phosp horus , serum or plasm a phosphorus 3.6 mg/dL 2.7-4. 5 Not Available [address], [facility] 08/17/2015 17:39:10 08/17/19 16 08/17/2015 uric acid, serum or plasm a uric acid 7.3 mg/dL 2.5-7. 0 high Not Available [address], [facility] 08/17/2015 17:39:11 08/17/19 16 08/17/2015 AST/S GOT (aspa rtate amino trans feras e), serum or plasm a aspartate aminotrans (AST) 30 U/L 10-50 Not Available [address], [facility] 08/17/2015 17:39:11 08/17/19 16 08/17/2015 ALT (josselyn ine amino trans feras e), serum or plasm a alanine aminotrans (ALT) 32 U/L 10-50 Not Available [address], [facility] 08/17/2015 17:39:11 08/17/19 16 08/17/2015 alkal ine phosp hatas e, serum or plasm a alkaline phosphatase 44 U/L 32-122 Not Available [facility] [address] [place] [address], [facility] 08/17/2015 17:39:11 08/17/19 16 08/17/2015 ldh, serum or plasm a lactate dehydrogenas e (LDH) 193 U/L 120-26 0 Not Available [address], [facility] 08/17/2015 17:39:12 08/17/19 16 08/17/2015 prote in, total , serum protein, total 7.2 g/dL 6.3-8. 3 Not Available [facility] [address], [facility] 08/17/2015 17:39:12 08/17/19 16 08/17/2015 album in, serum or plasm a albumin 4.5 g/dL 3.5-5. 0 Not Available [facility] [address] [place] [address], [facility] 08/17/2015 17:39:12 08/17/19 16 08/17/2015 album in / globu bibiana ratio globulin 2.7 g/dL 1.5-3. 9 Not Available [facility] [address] [place] [address], [facility] 08/17/2015 17:39:13 08/17/19 16 08/17/2015 album in / globu bibiana ratio albumin/glob ulin ratio 1.7 ratio 1.0-3. 0 Not Available [facility] [address] [place] [address], [facility] 08/17/2015 17:39:13 08/17/19 16 08/17/2015 lino stero l, total , serum cholesterol, total 169 mg/dL <200 Not Available [facility] b [address] [place] [address], [facility] 08/17/2015 17:39:13 08/17/19 16 08/17/2015 HDL lino stero l, serum cholesterol, HDL 60 mg/dL >39 Not Available [facility] [address] [place] [address], [facility] 08/17/2015 17:39:13 08/17/19 16 08/17/2015 lino stero l LDL/H DL, ratio cholesterol/ HDL ratio 2.8 ratio 0.0-5. 0 Relat derrick Risk Ratio - Male Ratio - Femal e 0.5 3.4 3.3 1.0 5.0 4.4 2.0 9.6 7.1 3.0 23.4 11.0 Not Available [facility] [address] [place], [facility] 08/17/2015 17:39:13 08/17/19 16 08/17/2015 lino stero l LDL/H DL, ratio estimated LDL 100 mg/dL <130 NCEP Guide lines : < 100 mg/dL Optim al 100 - 129 mg/dL Near Optim al/Ab ove Optim al 130 - 159 mg/dL Borde rline High 160 - 189 mg/dL High >/= 190 mg/dL Very High Not Available [facility] [address] [place] [address], [facility] 08/17/2015 17:39:13 08/17/19 16 08/17/2015 trigl yceri yumi, serum triglyceride s 45 mg/dL <150 Not Available [facility] [address] [place] [address], [facility] 08/17/2015 17:39:14 08/17/19 16 08/17/2015 iron, serum iron 127 ug/dL 59-151 Not Available [facility] [address] [place] [address] 08/17/2015 17:39:14 08/17/19 16 08/17/2015 TIBC (tota l iron- summer ng capac ity), serum unsaturated iron binding capacity 270 ug/dL 112-34 6 Not Available [address], [facility] 08/17/2015 17:39:14 08/17/19 16 08/17/2015 TIBC (tota l iron- summer ng capac ity), serum total iron binding capacity 397 ug/dL 100-40 0 Not Available [facility] [address] [place] [address], [facility] 08/17/2015 17:39:14 08/17/19 16 08/17/2015 TIBC (tota l iron- summer ng capac ity), serum % saturation 32 % 20-50 Not Available [facility] [address] [place] [address], [facility] 08/17/2015 17:39:14 08/17/19 16 08/17/2015 TSH, serum or plasm a TSH, highly sensitive 3.14 mIU/L 0.27-4 .20 Not Available [facility] [address] [place] [address], [facility] 08/17/2015 17:39:15 08/17/19 16 08/17/2015 CRP, high sensi tivit y, serum or plasm a C-reactive protein (high sens) 0.7 mg/L 0.1-3. 0 CDC/A BROUSSARD cut-o ff point s (tert theo) for CVD risk asses sment : hsCRP (mg/L ) Relat derrick Risk <1.0 Low 1.0 - 3.0 [place] ge >3.0 High Not Available [facility] [address] [place], [facility] 08/17/2015 17:39:15 08/17/19 16 08/17/2015 vitam in D, 25-hy droxy , total , serum vitamin D, 25-hydroxy 38 NG/mL 30-100 Inter preti ve Data <10 ng/mL Defic ient 10-29 ng/mL Insuf ficie nt 30-10 0 ng/mL Suffi cient >100 ng/mL Poten tial Intox icati on Not Available [facility] [address] [place], [facility] 08/17/2015 17:39:15 Result Notes None recorded. Problems Name Problem SNOMED Code Status Onset Date Resolution Date Notes Provider Name and Address Organization Details Recorded Time Malaise [id number] Active MENDOZA FRANKLIN MD [address] [address] , [facility] 08/16/2015 10:55:16 Problem Notes None recorded. Procedures Surgical History Date Name Laterality Status Provider Name and Address Organization Details Recorded Time 08/16/19 16 [id number] completed MENDOZA FRANKLIN MD [address], [address] [place] [address], [facility] 08/16/2015 10:48:08 08/16/19 16 [id number] completed MENDOZA FRANKLIN MD [address], [address], [facility] 08/16/2015 10:48:08 08/16/19 16 [id number] completed MENDOZA FRANKLIN MD [address], [address], [facility] 08/16/2015 10:48:08 02/23/20 15 [id number] completed MENDOZA FRANKLIN MD [address] [id number], [facility] 02/22/2015 12:03:40 02/23/20 15 [id number] completed MENDOZA FRANKLIN MD 175 [facility], [address] [place] [address], [place], [address], [facility] 02/22/2015 12:03:40 02/23/20 15 [id number] completed MENDOZA FRANKLIN MD 175 [facility], [address] [place] [address], [place], [address], [facility] 02/22/2015 12:03:40 09/20/19 15 Date of Last Pap Smear completed [facility] 02/22/2015 11:22:30 Appendectomy completed [facility] 02/22/2015 11:22:30 Imaging Results None recorded. Procedure Notes None recorded. Medical Equipment None Reported. Allergies Allergen ID Allergen Name Allergen Category Reaction Reaction Severity Criticality Documentation Date Start Date Code Code System Note Provider Name and Address Organization Details Recorded Time 713459 benzoyl peroxide medicatio n Not available Not available Not available 02/22/2015 1418 RxNorm Clarice e Colon null, [facility] 5 10:39:02 Medications Name Sig Start Date Stop Date Status Note LastModified by Organization Details LastModified Time lo loestrin fe 1 mg-10 mcg / 10 mcg tabs active Not Available Not Available Not Available desogestrel 0.15 mg-ethinyl estradiol 0.03 mg tablet Take 1 tablet every day by oral route. 2014 active Not Available Not Available Not Avai lable azithromycin 250 mg tablet active Not Available Not Available Not Available ibuprofen 800 mg tablet active Not Available Not Available Not Available Terazol 3 0.8 % vaginal cream Insert 1 applicatorf ul every day by vaginal route. 2015 active Not Available Not Available Not Avai lable Green Tea qd active Not Available Not Iliana ilable Not Available Lo Loestrin Fe 1 mg-10 mcg (24)/10 mcg (2) tablet Take 1 tablet every day by oral route. 2015 active Not Available Not Available Not Avai lable Vitals Date Recorded Body height Body mass index (BMI) Body weight Systolic blood pressure Diastolic blood pressure Provider Name and Address Organization Details Last Updated DateTime 02/22/2015 156.21 cm 24.5 kg/m2 76882.19 284 g 100 mm[Hg] 78 mm[Hg] Kimberly Bello-Sos a [facility] 5 11:38:04 Date Recorded Body height Body mass index (BMI) Body weight Systolic blood pressure Diastolic blood pressure Provider Name and Address Organization Details Last Updated DateTime 05/07/2015 154.94 cm 22.5 kg/m2 90922.49 203 g 100 mm[Hg] 78 mm[Hg] Kathy Santoyo [facility] 5 10:38:51 Date Recorded Body mass index (BMI) Body weight Body height Systolic blood pressure Diastolic blood pressure Provider Name and Address Organization Details Last Updated DateTime 08/16/2015 24.8 kg/m2 87581.60 047 g 154.94 cm 110 mm[Hg] 70 mm[Hg] Leila Ortiz [facility] 6 10:31:57 Social History Question Answer Notes LastModified by OrganizCBA PHARMA ion Details LastModified Time Tobacco Smoking Status Never Smoker Dee Dee Morris rosemary [facility] 02/22/2015 11:22:30 What Is Your Level Of Alcohol Consumption? Occasional Information not available 02/22/2015 Drug Use? No Information no t available 02/22/2015 Sex: Unknown Functional Status Question Answer Note LastModified by Organization D etails LastModified Time What is your exercise level? None Information not available 02/22/2015 Mental Status None recorded. Family History Relationship Description Onset Age of this Age Resolved Age Notes LastModified by Organization Details LastModified Time Unspecified Relation Malignant tumor of ovary Grandm other Not available 02/22/2015 11:22:30 Father Cerebrovascu lar accident Not available 09/2014 11:22:30 Unspecified Relation Malignant tumor of breast Grand Aunt Not available 02/22/2015 11:22:30 Medical History No medical history recorded. Gynecological History Statement/Question Response Date of Last Pap Smear 09/19/2014 Obstetrics History GPAL:G 0 P 0 0 0 0 Past Encounters Encounter ID Performer Location Encounter Start Date Encounter Closed Date Diagnosis/Indication Diagnosis SNOMED-CT Code Diagnosis ICD10 Code Diagnosis Note [id number] Kaylen Ken [facility] [address] [place] [address] 02/22/2015 11:09:36 02/22/2015 12:12:12 Uses contraception [id number] MENDOZA FRANKLIN MD [facility] [address] [place] [address] 05/07/2015 10:15:34 05/07/2015 11:12:39 test negative 769082240 Z32.02 Contraception care 39486 5005 Z30.40 [id number] MENDOZA FRANKLIN MD [facility] [address] [place] [address] 08/16/2015 10:16:30 08/16/2015 10:57:11 Gynecologic examination 45889168 Z01.419 Screening for malignant neoplasm of cervix 594079430 Z12.4 Malaise 782730105 R53.81 Vaginitis and vulvovaginitis 555418127 N76.0 Health Concerns Section Related Observation LastModified by Organization Detai ls LastModified Time None Recorded Concern Status LastModified by Organization Details LastModified Time None Recorded Advance Directives Directive None Recorded Payers Encounter Date Sequence Insurance Name Policy Number Policy Rendon Covered Member ID Rendon Member ID Guarantor Name 02/22/2015 1 [place] [id number] Melvin Cerna [id number] Bonnie Cerna 05/07/2015 1 [place] [id number] Melvin Cerna [id number] Bonnie Cerna 08/16/2015 1 [place] [id number] Melvin Cerna [id number] Bonnie Eryn Notes Date Note Type Note Provider Name and Address Organization Details Recorded Time 02/22/2015 text/html HPI interested in OCP used in past, aware of risks/benefits/side effects? MENDOZA FRANKLIN MD [address] [place] [address], [address] Floor, [place], [phone], [facility] 02/22/2015 12:06:46 08/16/2015 text/html [facility] Annual GYNReported bypatient.History:n o gynecologic complaints Menstrual cycle:Normal menses Urinary symptoms:No incontinence Vagina:somke discharge Breast:No breast pain; No breast lump Current Contraception:Satis fied with current contraception Preventive measures:Encourage self breast examination; Encourage regular exercise MENDOZA FRANKLIN MD [address] [place] [address], [address] Floor, [place], [phone], [facility] 08/16/2015 10:55:19 OBGyn Episode No OBEpisode recorded.
--- OUTSIDE RECORDS SUMMARY | 2024-07-23 15:38 | XMS_ITS | Clinical Summary ---
Author Organization [facility] Address [address] [place] [address] Care Team Providers Care Mailroom Messenger Name Role Phone Radha Sylvester Primary Care Provider [phone] Allergies Active Allergy Reactions Criticality Noted Date Comments Gluten 02/07/2023 Medications No known medications Social History Tobacco Use Types Packs/Day Years Used Date Smoking Tobacco: Never Smokeless Tobacco: Never Tobacco Cessation:Counseling Given: Not Answered Comments No Sex and Gender Information Value Date Recorded Sex Assigned at Not on file Legal Sex Female 4:10 PM EDT Gender Identity Not on file Sexual Orientation Not on file Last Filed Vital Signs Vital Sign Reading Time Taken Comments Blood Pressure 112/72 02/07/2023 6:39 PM EDT Pulse 68 02/07/2023 6:39 PM EDT Temperature 36.8 ??C (98.3 ??F) 02/07/2023 6:16 PM ED T Respiratory Rate 18 02/07/2023 6:39 PM EDT Oxygen Saturation 98% 02/07/2023 6:39 PM EDT Inhaled Oxygen Concentration - - Weight 72.6 kg (160 lb) 02/07/2023 4:20 PM EDT Height 157.5 cm (5' 2 ) 02/07/2023 4:20 PM EDT Body Mass Index 29.26 02/07/2023 4:20 PM EDT Plan of Treatment Health Maintenance Due Date Last Done Comments HIV Screening 1991 Hepatitis C Screening 2009 Hepatitis B Vaccines (1 of 3 - 19+ 3-dose series) 2010 Pap Smear 2012 Cervical Cancer Screening 2021 HPV/Cotest 2021 COVID-19 Vaccine ( season) 2024 05/26/2022, 05/26/2022, 06/06/2021, Additional history exists Influenza Vaccine (#1) 2024 DTaP,Tdap,and Td Vaccines (2 - Td or Tdap) 04/01/2028 04/01/2018 Zoster Vaccines (1 of 2) 2041 HPV Vaccines Aged Out No longer eligi ble based on patient's age to complete this topic Hepatitis A Vaccines Aged Out No long er eligible based on patient's age to complete this topic MMR Vaccines Aged Out No longer eligi ble based on patient's age to complete this topic Meningococcal Vaccine Aged Out No lex yarelis eligible based on patient's age to complete this topic Pneumococcal Vaccine: Pediatrics (0 to 5 Years) and At-Risk Patients (6 to 64 Years) Aged Out No longer eligible based on patient's age to complete this topic Insurance [employer] Care Teams Mailroom Messenger Relationship Specialty Start Date End Date Radha Sylvester [address] [place] [phone] PCP - General Internal Medicine 02/07/23
--- OUTSIDE RECORDS SUMMARY | 2024-07-23 15:38 | XMS_ITS | Encounter Summary ---
Author Organization [facility] Address Unknown Care Team Providers Care Development Director Name Role Phone Radha Sylvester MD Primary Care Provider Reason for Visit * Reason Comments Appointment Request Discuss +HPT Encounter Details Date Type Department Care Team ([facility] st Contact Info) Description 01/05/2022 Telephone Y Department of Obstetrics and Gynecology [address] [facility], [address] [place] [address] Bridget Malone N, GOLF C[employer] MECH[employer]IC [address] [phone] Appointment Request (Discuss +HPT) Social History Tobacco Use Types Packs/Day Years [...] encounter Miscellaneous Notes * Telephone Encounter - VasquezNathanael - 01/05/2022 9:15 AM EDT Pt's # [phone] Pt requesting to schedule a Telehealth appt to discuss further has +hpt as wants to be apart of visit. Pt spoke with on Tuesday 01/02 but was not there for phone call so pt asking to schedule a Telehealth with a provider to discuss further as pt & are still on the fence aboutkeeping . LMP 12/02 Please advise documented in this encounter Plan of Treatment Not on file documented as of this encounter Visit Diagnoses Not on filedocumented in this encounter Additional Health Concerns Infection Onset Date Last Indicated Resolved Time COVID-19 12/01/2023 12/01/2023 12/11/2023 7:18 PM EDT documented as of this encounter Care Teams Development Director Relationship Specialty Start Date End Date Radha Sylvester MD [address] [place] [phone] PCP - General 09/06/23 documented as of this encounter
--- OUTSIDE RECORDS SUMMARY | 2024-07-23 15:38 | XMS_ITS | Encounter Summary ---
Author Organization [facility] Address Unknown Care Team Providers Care Supervisor Frame Assembly Name Role Phone Radha Sylvester MD Primary Care Provider Reason for Visit * Reason Onset Date Comments Medication Refill 11/16/2022 Encounter Details Date Type Department Care Team ([facility] st Contact Info) Description 11/16/2022 [address]ill [facility] Department of Internal Medicine [address] [place] [phone] Radha Sylvester MD [address] [place] [phone] Medication Refill Social History Tobacco Use [...] as of this encounter Care Teams Supervisor Frame Assembly Relationship Specialty Start Date End Date Radha Sylvester MD [address] [place] [phone] PCP - General 09/06/23 documented as of this encounter
--- OUTSIDE RECORDS SUMMARY | 2024-07-23 15:38 | XMS_ITS | Encounter Summary ---
Author Organization [facility] Address Unknown Care Team Providers Care Neurodiagnostic Technologist Name Role Phone Radha Sylvester MD Primary Care Provider Encounter Details Date Type Department Care Team ([facility] st Contact Info) Description 12/15/2021 Scanned Document [facility] Department of Physical Therapy [address] [place] [phone] External, Provider Social History Tobacco Use Types [...] documented as of this encounter Care Teams Neurodiagnostic Technologist Relationship Specialty Start Date End Date Radha Sylvester MD [address] [place] [phone] PCP - General 09/06/23 documented as of this encounter
--- NOTE | 2024-07-23 15:53 | PC.NURSE ---
This RN assisted as second RN in conscious sedation. Provider administered 50 mg of Propofol (split into 25 mg doses) during sedation. Held Fentanyl. Pt had no adverse outcomes. RT present and monitoring as well. 2 RNs wasted fentanyl and propofol
--- NOTE | 2024-07-23 16:10 | PC.NURSE ---
pt more awake/alert at this time s/p conscious sedation. pt responsive to verbal stimuli w/o difficulty. pt answering questions/following commands appropriately but remains somewhat somnolent. vss and up to date. nsr on the branch employment coordinator. pt remains on 2L via NC - end tital @ 35. no sob/wob noted. respirations even/unlabored. bedside for support. plan of care ongoing. call martinez placed within reach.
[2024-07-23 16:14] LABS: MANUAL DIFF FLAG NO
[2024-07-23 16:17] LABS: Basophils Percent Auto 0.4 % (0-2); Eosinophils Absolute Auto 0.1 X10*3/uL (0.0-0.4); Eosinophils Percent Auto 0.7 % (0-4); Hematocrit 37.3 % (37.0-47.0); Hemoglobin 13.2 g/dl (12.0-16.0); Imm Gran Abs Auto 0.03 X10*3/uL (0.00-0.03); Imm Gran Pct Auto 0.3 % (0.0-0.4); Lymphocytes Absolute Auto 1.2 X10*3/uL (1.2-4.9); Lymphocytes Percent Auto 11.3 % (20-40); Mean Corpuscular HGB Conc 35.4 g/dl (31.0-35.0); Mean Corpuscular Hemoglobin 30.6 pg (27.0-33.0); Mean Corpuscular Volume 86.5 fL (80.0-98.0); Monocytes Absolute Auto 0.5 X10*3/uL (0.1-1.2); Monocytes Percent Auto 4.7 % (2-11); Neutrophils Absolute Auto 8.8 x10*3/uL (2.0-8.3); Neutrophils Percent Auto 82.6 % (45-73); Platelet Count 206 X10*3/uL (160-400); Red Blood Count 4.31 X10*6/uL (4.20-5.50); Red Cell Distribution Width 12.1 % (11.0-16.0); White Blood Count 10.7 X10*3/uL (4.8-10.8)
--- NOTE | 2024-07-23 16:27 | ED_ITS ---
HPI - Extremity Injury (Lower) General Chief Complaint: Extremity Injury, Lower Stated Complaint: FALL R ANKLE PAIN Time Seen by Provider: 07/23/24 14:49 Source: patient and family () Mode of arrival: ambulatory Limitations: no limitations History of Present Illness ED Provider: ARI Henning HPI Narrative: This is a 34-year-old female history of celiac disease presenting to the emergency department with severe 10/10 ankle pain status post slip and fall on ice. She reports she slipped on ice and , rolled her ankle since then has been having severe pain she does not feel like she can move her right ankle. She has had no previous issues with the right ankle in the past. She denies head strike, loss of consciousness, she is not on blood thinners. She denies preceding symptoms to fall such as chest pain, shortness breath, nausea, vomiting, abdominal pain, headache, vision changes or dizziness. GCS 15. NIH stroke scale 0 on arrival Related Data Previous Rx's ?Medication ?Instructions ?Recorded acetaminophen 325 mg tablet 650 mg (2 x 325 mg) PO Q6H PRN 07/23/24 (Tylenol) fever or pain #30 tabs morphine 15 mg immediate release 15 mg PO Q6H PRN pain 5 days #10 07/23/24 tablet tabs Allergies Allergy/AdvReac Type Severity Reaction Status Date / Time gluten AdvReac Gastrointestinal Verified 07/23/24 14:59 Upset Review of Systems 2 Review of Systems: Yes all other systems are reviewed and are negative [facility] Past Medical History Attestation statement: The following information was validated with the patient. Source: old records reviewed and nursing notes reviewed Social History Social History Advance Directives: No Advance Directives Information Provided: No Patient : No Physical Exam 2 Vital Signs: Vital Signs: Last Vital Signs Temp 98.4 F 07/23/24 14:50 Pulse 82 07/23/24 16:15 Resp 16 07/23/24 16:15 BP 127/83 07/23/24 16:15 Pulse Ox 100 07/23/24 16:15 O2 Del Method Nasal Cannula 07/23/24 16:15 O2 Flow Rate 2 07/23/24 16:15 Oxygen Flow Rate 3 07/23/24 16:00 BMI result Body Mass Index 28.3 vss Appearance: Alert.? Oriented X3.? No acute distress.? Head: Normocephalic, atraumatic, no step-offs or deformities Eyes: Pupils equal, round and reactive to light.? Neck: Normal inspection.? Neck supple.? CVS: Normal heart rate and rhythm.? Pulses normal.? Respiratory: No respiratory distress.? Breath sounds normal.? Abdomen: Soft and nontender.? Skin: Skin warm and dry.? Normal skin color.? Normal skin turgor.? Extremities: No lower extremity edema.? No calf ttp. 5/5 strength to bilateral upper extremities, and left lower extremity. Right lower extremity strength difficult to assess secondary to pain. There is evident deformity to the right ankle the appears as though there is anterior dislocation of the fibula, no open fractures noted. Patient able to wiggle toes bilaterally. 2+ dorsalis pedis, anterior tibialis posterior tibialis pulses equal bilateral. No footdrop. Neuro: Oriented X 3.? No motor deficit.? No sensory deficit. CN 2-12 intact Course Reevaluation(s) Reevaluation #1: Initial x-ray showing positive for fracture and dislocation with a displaced fracture of the distal fibula above the level of the syndesmosis. Limited evaluation of the medial malleolus fracture with no significant displacement as suspected. Disruption of the ankle mortise with posterior dislocation of the talus relative to the tibia with likely a rotational component intact subtalar joint. No radiopaque foreign body. Based off of these findings conscious sedation done with propofol patient given a total of 50 mg of IV propofol again Dr. Banks at the bedside. Traction and counter traction applied with success, patient was placed in a posterior long and a stirrup splint. After placing splint neurovascular status intact Time: 16:00 Reevaluation #2: Patient waking up from anesthesia. Pain well controlled. Plan is for discharge home with morphine for pain control as well as Tylenol. Orthopedics recommends that patient elevate the extremity above heart level, avoid NSAIDs and follow up outpatient will likely need surgery. Will give her crutches. Educated patient on diagnosis and treatment plan, answered all question, patient verbalizes understanding. At this time patient will be discharged home, advised to return with new or worsening symptoms. Educated on worrisome signs and symptoms and when to return. At this time I feel comfortable discharge home. Time: 16:37 Medications Administered Discontinued Medications Generic Name Dose Route Start Last Admin Trade Name Freq PRN Reason Stop Dose Admin Fentanyl 100 mcg 07/23/24 15:23 07/23/24 15:50 Fentanyl Citrate/Pf 100 Mcg/2 Ml Vial IVPUSH 07/23/24 15:24 Not Given ONCE ONE Protocol Hydromorphone HCl 1 mg 07/23/24 15:15 07/23/24 15:17 Hydromorphone Hcl 1 Mg/Ml Syringe IVPUSH 07/23/24 15:16 1 mg ONCE ONE Administration Protocol Lorazepam 2 mg 07/23/24 15:15 07/23/24 15:21 Lorazepam 2 Mg/Ml Vial IVPUSH 07/23/24 15:16 2 mg ONCE ONE Administration Morphine Sulfate 4 mg 07/23/24 14:48 07/23/24 14:56 Morphine Sulfate 4 Mg/Ml Cartridge IVPUSH 07/23/24 14:49 4 mg ONCE ONE Administration Protocol Ondansetron HCl 4 mg 07/23/24 14:48 07/23/24 14:57 Ondansetron Hcl 4 Mg/2 Ml Vial IVPUSH 07/23/24 14:49 4 mg ONCE ONE Administration Propofol 100 mg 07/23/24 15:23 07/23/24 15:33 Propofol 200 Mg/20 Ml Vial IVPUSH 07/23/24 15:24 50 mg ONCE ONE Administration Medical Decision Making Medical Decision Making MDM Narrative: 34-year-old female presents for right ankle pain status post slip and fall. No head strike or loss of consciousness. Not on blood thinners. Physical exam significant for No lower extremity edema.? No calf ttp. 5/5 strength to bilateral upper extremities, and left lower extremity. Right lower extremity strength difficult to assess secondary to pain. There is evident deformity to the right ankle the appears as though there is anterior dislocation of the fibula, no open fractures noted. Patient able to wiggle toes bilaterally. 2+ dorsalis pedis, anterior tibialis posterior tibialis pulses equal bilateral. No footdrop. History and physical exam concerning for fracture with dislocation of fibula. No signs of neurovascular compromise or acute threat to limb. No signs of trauma to right knee or hip. No signs of trauma to head, neck, chest, abdomen or pelvis. Plan at this time will obtain imaging patient in severe pain unable to palpate right lower extremity secondary to pain she is screaming out she is anxious, and in pain. She would prefer sedation. Patient will be given Ativan, morphine and sedation with propofol. I did get verbal and written consent for sedation. Inpatient chart. Dr. Banks aware and at bedside. Differential Diagnosis Differential Diagnoses: The differential diagnosis associated with the presentation includes ( History and physical exam concerning for fracture with dislocation of fibula. No signs of neurovascular compromise or acute threat to limb. No signs of trauma to right knee or hip.) Admission/Observation Consideration of admission/observation: Escalation of care including admission/observation considered Consult Healthcare Provider Management of the patient was discussed with: Interior Decorator (Orthopedics Alex ) Lab Data MDM Lab Attestation statement: I reviewed the patient's lab results. 07/23/24 16:10 07/23/24 16:10 Labs: Lab Results 07/23/24 07/23/24 07/23/24 Range/Units 15:00 15:11 15:12 WBC (4.8-10.8) X10*3/uL RBC (4.20-5.50) X10*6/uL Hgb (12.0-16.0) g/dl Hct (37.0-47.0) % MCV (80.0-98.0) fL MCH (27.0-33.0) pg MCHC (31.0-35.0) g/dl RDW (11.0-16.0) % Plt Count (160-400) X10*3/uL MPV (9.4-12.3) fL Immature Gran % (Auto) (0.0-0.4) % Neut % (Auto) (45-73) % Lymph % (Auto) (20-40) % [place] % (Auto) (2-11) % Eos % (Auto) (0-4) % Baso % (Auto) (0-2) % Lymph # (Auto) (1.2-4.9) X10*3/uL [place] # (Auto) (0.1-1.2) X10*3/uL Eos # (Auto) (0.0-0.4) X10*3/uL Baso # (Auto) (0.0-0.2) X10*3/uL Abs Immat Gran (auto) (0.00-0.03) X10*3/uL Absolute Neuts (auto) (2.0-8.3) x10*3/uL Absolute Nucleated RBC (0.0-0.012) X10*3/uL Nucleated RBC % (auto) (0.0-0.2) /100WBC Hold Purple Top SEE NOTE Hold Blue Top SEE NOTE SEE NOTE Blood Type A Negative Antibody Screen NEGATIVE 07/23/24 Range/Units 16:10 WBC 10.7 (4.8-10.8) X10*3/uL RBC 4.31 (4.20-5.50) X10*6/uL Hgb 13.2 (12.0-16.0) g/dl Hct 37.3 (37.0-47.0) % MCV 86.5 (80.0-98.0) fL MCH 30.6 (27.0-33.0) pg MCHC 35.4 H (31.0-35.0) g/dl RDW 12.1 (11.0-16.0) % Plt Count 206 (160-400) X10*3/uL MPV 11.0 (9.4-12.3) fL Immature Gran % (Auto) 0.3 (0.0-0.4) % Neut % (Auto) 82.6 H (45-73) % Lymph % (Auto) 11.3 L (20-40) % [place] % (Auto) 4.7 (2-11) % Eos % (Auto) 0.7 (0-4) % Baso % (Auto) 0.4 (0-2) % Lymph # (Auto) 1.2 (1.2-4.9) X10*3/uL [place] # (Auto) 0.5 (0.1-1.2) X10*3/uL Eos # (Auto) 0.1 (0.0-0.4) X10*3/uL Baso # (Auto) 0.0 (0.0-0.2) X10*3/uL Abs Immat Gran (auto) 0.03 (0.00-0.03) X10*3/uL Absolute Neuts (auto) 8.8 H (2.0-8.3) x10*3/uL Absolute Nucleated RBC 0.000 (0.0-0.012) X10*3/uL Nucleated RBC % (auto) 0.0 (0.0-0.2) /100WBC Hold Purple Top Hold Blue Top Blood Type Antibody Screen Independent Interpretation I performed an independent interpretation of an: Plain X-Ray (Findings: Displaced fracture in the distal fibula above the level of the syndesmosis. Limited evaluation of the medial malleolus. A fracture with no significant displacement is suspected. Disruption of the ankle mortise. Posterior dislocation of the talus relative to the tibia with likely a rotat) Interpretation: Post reduction r ankle IMPRESSION: 1. Minimal residual displacement of the fracture in the distal fibula. 2. Satisfactory alignment of the fracture in the medial malleolus. 3. Satisfactory alignment of the ankle mortise. Knee R xray IMPRESSION: No acute fracture, dislocation or significant joint effusion. Radiology Impression Discussion of test interpretation with radiology: I have reviewed the radiologist's reading. Independent Historian Clinical information obtained from an independent historian. History obtained from or confirmed by: Spouse Tests considered The following testing was considered but not selected: No other trauma reported. No indication for imaging of head, neck, chest, abdomen or pelvis. Breath sounds clear to auscultation bilaterally. Prescription Management I considered prescription management with: Pain Medication (Morphine, Tylenol. Should stay away from NSAIDs.) Chronic Conditions Patient?s care impacted by: Other (Celiac disease.) Critical Care Time Critical Care Time Critical Care Time: Yes Total Critical Care Time: 45 Attestation: I attest to this time spent taking care of the patient, obtaining history, physical, reviewing labs, imaging, treatment of patients condition +/- specialist/hospitalist consult Discharge Plan Discharge Clinical Impression: Fibula fracture, Fall due to slipping on ice or snow Patient Disposition: Home, Self-Care Instructions: Leg Fracture (ED), Crutch Instructions (ED), ORIF (DC), ORIF of a Leg Fracture (DC) Additional Instructions: Take your medications as prescribed. If you were prescribed antibiotics today, it is important that you take your medication to their entirety, do not skip any doses, do not finish them early. Follow-up with your primary care provider this week. Return to the emergency department with new or worsening symptoms. Such as fevers, chills, chest pain, shortness of breath, nausea, vomiting, dizziness, headache, vision changes, lethargy In case of emergency call 911 Try to not bear weight on your right lower extremity. Please do not get the splint wet. If you notice severe pain, swelling or inability to feel your right lower extremity/toes please return immediately. A narcotic has been sent to your pharmacy please take this as prescribed. Do not take more than the prescribed dose. Narcotic medications can cause addiction. Please do not mix them with alcohol. Do not take them while driving or operating machinery. Do not take them with any other narcotics. Do not share them with friends or family. They can cause constipation. Take them only for severe pain. Please use your crutches as instructed. Try to elevate your right lower extremity above heart level as much as possible. Rest, ice, compress and elevate. Follow up with the orthopedic team call Wednesday to schedule an appointment. Knee Xray Findings: No fractures or dislocations. No significant loss of joint space, osteophytes, or erosions. No joint effusion. No radiopaque foreign body. IMPRESSION: No acute fracture, dislocation or significant joint effusion. Post reduction R ankle Findings: Interval placement of an overlying stabilizing cast. Mcguire type C fracture in the distal fibula with residual posterior and lateral displacement, 4 mm maximum step-off. Fracture in the superior aspect of the medial malleolus with satisfactory alignment. Now near normal tibiotalar articulation. Soft tissue swelling and an ankle effusion. No radiopaque foreign body. IMPRESSION: 1. Minimal residual displacement of the fracture in the distal fibula. 2. Satisfactory alignment of the fracture in the medial malleolus. 3. Satisfactory alignment of the ankle mortise. Initial R ankle xray Findings: No fractures or dislocations. No significant loss of joint space, osteophytes, or erosions. No joint effusion. No radiopaque foreign body. IMPRESSION: No acute fracture, dislocation or significant joint effusion. Prescriptions: New acetaminophen [Tylenol] 325 mg tablet 650 mg PO Q6H PRN (Reason: fever or pain) Qty: 30 0RF morphine 15 mg tablet 15 mg PO Q6H PRN (Reason: pain) 5 Days Qty: 10 0RF Rx Instructions: Partial Fill upon patient request. Referrals: [facility] [place] [facility] [Provider Group] - 1 day Physician,None [Primary Care Provider] - 2 days Stand Alone Forms: Work/School Release Print Language: Urdu
--- NOTE | 2024-07-23 16:39 | PC.NURSE ---
This medication was administered at 14:53. Per verbal orders of ARI Gaitan, this medication was removed from Pyxis at 14:51 by this RN and administered to pt. in bed 18H at 14:53. Medication was not documented until this time d/t RN being unable to log onto computer for two hours d/t IT issues. land use planner aware of ongoing IT issues r/t this RN's computer/[employer] access.
[2024-07-23 16:50] LABS: Alanine Aminotransferase 17 U/L (0-31); Anion Gap 13 (12-20); Aspartate Amino Transferase 24 U/L (5-31); Bilirubin Total 0.4 mg/dL (0.0-1.0); Blood Urea Nitrogen 15 mg/dL (9-16); Calcium 8.6 mg/dL (8.4-10.2); Carbon Dioxide 20 mmol/L (22-29); Chloride 108 mmol/L (96-108); Creatinine Clr Calc Pharmacy 100.5; Estimated Glomerular Filt Rate > 60; Glucose Random 92 mg/dL (60-115); Potassium 3.7 mmol/L (3.3-5.1); Sodium 137 mmol/L (135-145); Total Protein 6.8 g/dL (6.5-8.0)
--- NOTE | 2024-07-23 17:19 | PC.NURSE ---
pt completely alert and oriented at this time. vss and up to date. nsr on the radiation monitor. pt able to maintain airway w/o difficulty. no difficulty in managing secretions noted. on RA w/o difficulty. no sob/wob noted. respirations even/unlabored. pt remains physician observation for the time being. will do crutch training when order is placed. plan of care ongoing.
[2024-07-23 17:23] LABS: Alkaline Phosphatase 41 U/L (39-117)
--- NOTE | 2024-07-23 19:18 | PC.NURSE ---
late entry: pt transferred from 18H to ED4 for conscious sedation of the RLE. pt presents to ED4 extremely tearful/anxious. vitals obtained/wnl. nsr on the skein bleacher. pt on RA w/o difficulty. 20gIV in the left AC placed by previous RN. additional 18gIV placed in the right AC - labs obtained/sent to lab. medication administered per provider order. xray performed. MD Darren Walters MD Ferro, RT Breonna as well as this RN and MANI Mendoza bedside. pt placed on the skein bleacher. BP recording q2min. pt placed on 2L via NC w/ capnography. suction in place. ambu bag in place. time out for conscious sedation performed by ARI Teresa. 25mg of propofol administered at 1533. pt still responsive to painful stimuli - additional 25mg of propofol administered at 1534. reduction performed. pt tolerated well. vitals stayed wnl. nsr on the skein bleacher. pt remained on 2L via NC during procedure. pt able to breathe adequately on her own. no airway compromise noted. pt tolerated well. splint/sugar tong applied to RLE. +pulses. see pre/intra/post conscious sedation notes in worklist for further documentation.
[2024-07-23] MEDS: Acetaminophen 325 MG TABLET 975 MG PO (20:14)
== END 2024-07-23 20:16 | disposition home or self-care (01) ==
PROVIDERS: Physician Assistant; Emergency Provider Emergency Medicine
DX: S82.831A Other fracture of upper and lower end of right fibula, initial encounter for closed fracture (principal); M25.571 Pain in right ankle and joints of right foot; M25.561 Pain in right knee; W00.0XXA Fall on same level due to ice and snow, initial encounter; Y93.9 Activity, unspecified; Y92.89 Other specified places as the place of occurrence of the external cause; Y99.8 Other external cause status
CPT/HCPCS: 36415; 73560; 73610; 80053; 83735; 85025; 86850; 86900; 86901; 96374; 96375; 99284; J1171; J2060; J2270; J2405; J2704

== ENCOUNTER → 2024-07-23 14:48 | Outpatient (BNV) | payer OTHER, SELFPAY | PROVIDERS: Emergency Provider Emergency Medicine; Visit Provider Radiology Diagnostic Radiology | DX: S82.841A Displaced bimalleolar fracture of right lower leg, initial encounter for closed fracture (principal); S80.911A Unspecified superficial injury of right knee, initial encounter | CPT/HCPCS: 73560; 73610 ==